=== PATIENT | male | born 1985 | race Caucasian/White ===

== ENCOUNTER 2023-09-24 14:46 | Outpatient (REF) | payer MEDICAID, SELFPAY | END 2023-09-24 14:47 | disposition home or self-care (01) | LOC: HO.HOSX 14:46 | PROVIDERS: Visit Provider Orthopaedic Surgery | DX: Z13.89 Encounter for screening for other disorder (principal) ==

== ENCOUNTER 2023-10-23 09:43 | Outpatient (REF) | payer OTHER, SELFPAY ==
--- NOTE | ~2023-10-23 | XR_ITS ---
EXAMINATION: XR PELVIS CLINICAL INFORMATION: Pain COMPARISON: None available. TECHNIQUE: AP view of the pelvis. FINDINGS: Minimal degenerative spurring along the superior acetabular rim bilaterally without significant joint space narrowing. No fracture or malalignment. There is a calcification at the superior aspect of the left greater trochanter which likely represents calcific tendinitis. XR/XR pelvis 1-2V IMPRESSION: 1. Probable left greater trochanteric calcific tendinitis. 2. Minimal bilateral hip osteoarthritis.
== END 2023-10-23 09:44 | disposition home or self-care (01) ==
LOC: HO.HOSX 09:43
PROVIDERS: Visit Provider Orthopaedic Surgery
DX: M25.559 Pain in unspecified hip (principal)
CPT/HCPCS: 72170

== ENCOUNTER 2023-10-23 09:55 | Outpatient (AMB) | payer OTHER, SELFPAY ==
--- NOTE | 2023-10-23 10:01 | MHC.OFFVIS ---
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 Patient reports that his pain has been present for about 10+ years now and is felt in the groin. He states an injury when running while playing soccer. He felt an improvement in his pain however he never fully healed. His pain increases with activity or certain movements such as lift his leg. No previous tx. 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 Patient reports that his pain has been present for about 10+ years now and is felt in the groin. He states an injury when running while playing soccer. He felt an improvement in his pain however he never fully healed. His pain increases with activity or certain movements such as lift his leg. No previous tx. 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 Results Reviewed Results Reviewed: I personally reviewed relevant radiographs. There are mild arthritis changes right hip Assessment & Plan Assessment & Plan (1) Labral tear of right hip joint: Code(s): S73.191A - Other sprain of right hip, initial encounter Plan: Right hip labral tear. Very active and healthy. MRI right hip Orders: Orders XR pelvis 1-2V 09/24/23 M25.559 - Pain in unspecified hip XR pelvis 1-2V Today M25.559 - Pain in unspecified hip MR hip RT w con Today S73.191A - Other sprain of right hip, initial encounter [place] arthrogram hip RT Today S73.191A - Other sprain of right hip, initial encounter Coding Level of Care Code New Pt Level 3 (33857) Diagnoses Labral tear of right hip joint S73.191A
[2023-10-23 10:05] VITALS: BMI 25.8
== END 2023-10-23 10:39 | disposition home or self-care (01) ==
PROVIDERS: Visit Provider Orthopaedic Surgery
DX: S73.191A Other sprain of right hip, initial encounter (principal)
CPT/HCPCS: 99203